=== PATIENT | female | born 1985 | race Asian ===

== ENCOUNTER 2017-11-09 14:50 | Outpatient (CLI) | payer OTHER ==
--- NOTE | 2017-11-09 16:42 | ULT ---
PELVIC ULTRASOUND: 11/09/2017 HISTORY: Hirsutism. TECHNIQUE: Multiple transabdominal and endovaginal sonographic images of the pelvis are obtained. FINDINGS: The uterus measures 8.3 cm x 6.1 cm x 5.6 cm. There is heterogeneity of the uterus. There is a hete rogeneous mass seen within the body of the uterus, which measures approximately 3.7 cm in maximal dim ension, and likely represents a uterine fibroid. A few additional smaller hypoechoic masses are also seen, with the next largest mass measuring 1.3 cm. Findings are likely related to uterine fibroids. The endometrial stripe is not visualized on this exam. There is no fluid or fluid collection seen in the expected location of the endometrial canal. The ovaries demonstrate a normal sonographic appearance bilaterally with peripheral follicles seen. The right ovary measures 3.5 cm x 3.1 cm x 2.1 cm with the left ovary measuring 3.5 cm x 2.4 cm x 2 c m. Doppler evaluation of each ovary with spectral analysis and color-flow evaluation demonstrates arteri al and venous flow. Nabothian cysts are seen in the cervix. No free fluid is seen in the cul-de-sac. IMPRESSION: 1. Uterine fibroids. 2. Normal appearing bilateral ovaries with arterial and venous flow seen in each ovary. POS: PLACIDO
== END 2017-11-09 14:51 | disposition home or self-care (01) ==
LOC: SCSULT 14:50
PROVIDERS: ATTEND Family Medicine
DX: L68.0 Hirsutism (principal); D25.9 Leiomyoma of uterus, unspecified
CPT/HCPCS: 76856